=== PATIENT | female | born 1970 | race African-American/Black ===

== ENCOUNTER 2017-08-02 11:00 | Emergency (ER) | payer BC ==
[~2017-08-02] VITALS: Ht 162.6 cm; Wt 65.8 kg
[2017-08-02] MEDS ORDERED: IPRATROPIUM BROMIDE 0.5 MG/2.5 ML NEBU ONE (14:05)
[2017-08-02] MEDS ORDERED: ALBUTEROL SULFATE 1.25 MG/3 ML NEBU ONE (14:05)
[2017-08-02 14:51] VITALS: BP 129/71
--- NOTE | 2017-08-02 14:52 | NUR ---
Patient discharged to home in stable conditon. Written and verbal after care instructions given. Patient verbalizes understanding of instructions. Pt left ER w/ steady gait.
== END 2017-08-02 14:53 | disposition home or self-care (01) ==
LOC: ER 11:00
DX: J40 Bronchitis, not specified as acute or chronic (principal)
CPT/HCPCS: 71045; 87400; A4663; J3590